=== PATIENT | male | born 1995 | race Caucasian/White ===

== ENCOUNTER 2016-11-12 09:09 | Emergency (ER) | payer SELFPAY ==
[~2016-11-12] VITALS: Ht 195.6 cm; Wt 100.0 kg
[~2016-11-12 09:09] MED LIST: MOTR200T PO; PROM25SU8 PO
[2016-11-12 09:11] VITALS: BP 135/83; PULSE 76; RESP 20; TEMP 98.5; O2SAT 100
--- NOTE | 2016-11-12 10:47 | PD ---
HPI Chief Complaint: Abdominal Pain Time Seen by Provider: 09:54 Travel History International Travel<30 days: No Contact w/Intl Traveler<30days: No Traveled to known affect area: No History of Present Illness HPI This patient complains of abdominal discomfort. He has spells that last 2-3 minutes and resolved spontaneously. This is been going on for going on 2 years now. He has seen GI physician in the past but no diagnosis made. He denies fever. No alleviating factors PFSH Past Medical History Medical History: Denies Significant Hx Diminished Hearing: No Gastrointestinal Disorders: Yes (CHRONIC ABD PAIN ) Immunizations Current: No Tetanus Vaccination: < 5 Years Influenza Vaccination: No Past Surgical History Appendectomy: Yes Tonsillectomy: Yes Other Surgery: Yes (R ANKLE SURGERY ) Social History Alcohol Use: Yes (OCC) Tobacco Use: No Substance Use: Yes (MARIJUANA) Allergies-Medications (Allergen,Severity, Reaction): Coded Allergies: No Known Allergies (Unverified , 11/12/16) Reported Meds & Prescriptions Reported Meds & Active Scripts Active No Active Prescriptions or Reported Medications Review of Systems HENT: No: Headaches Cardiovascular: No: Chest Pain or Discomfort Respiratory: No: Cough Gastrointestinal: Positive: Abdominal Pain Physical Exam Narrative GASTROINTESTINAL: Abdomen soft, non-tender, nondistended. Positive bowel sounds. No hepato-splenomegaly, or palpable masses. No guarding. SKIN: Focused skin assessment reveals no rash or ulcers. Skin is warm and dry. Palpation shows no induration or nodules. Psych: Normal mood and affect. Normal insight and judgment. Data Data Last Documented VS Vital Signs Date Time Temp Pulse Resp B/P Pulse Ox O2 Delivery O2 Flow Rate FiO2 11/12/16 09:11 98.5 76 20 135/83 100 MDM Medical Decision Making Medical Screen Exam Complete: Yes Emergency Medical Condition: Yes Medical Record Reviewed: Yes Differential Diagnosis Irritable bowel syndrome, colitis, gastroparesis Narrative Course I have reviewed the patient's electronic medical record. Patient has normal vital signs and a soft benign nontender abdomen. He is asymptomatic now. He does not require any emergent studies He will follow-up with outpatient GI physician Diagnosis Primary Impression: Abdominal pain Qualified Code: R10.10 - Pain of upper abdomen Additional Instructions: Call Dr. Canas's office for follow-up appointment Med/Other Pt SpecificInfo: Other Scripts No Active Prescriptions or Reported Meds Disposition: 01 DISCHARGE HOME Condition: Zana Boyd MD Nov 12, 2016 10:47
== END 2016-11-12 10:59 | disposition home or self-care (01) ==
LOC: NEPD 09:09
DX: R10.10 Upper abdominal pain, unspecified (principal)
CPT/HCPCS: 99282

== ENCOUNTER 2016-12-01 08:25 | Emergency (ER) | payer SELFPAY ==
[2016-12-01 08:26] VITALS: BP 128/74; PULSE 75; RESP 20; TEMP 98.3; O2SAT 98
[2016-12-01] MEDS ORDERED: NEXI20CA PO (09:11)
[2016-12-01] MEDS ORDERED: SODIUM CHLOR 0.9% 1000 ML INJ 1,000 ML IV ONE (09:45)
[2016-12-01] MEDS ORDERED: PROCHLORPERAZINE INJ 10 MG/2 ML VIAL IV PUSH ONE (09:45)
[2016-12-01] MEDS ORDERED: diphenhydrAMINE HCL 50 MG/ML VIAL ONE (09:53)
[2016-12-01] MEDS ORDERED: diphenhydrAMINE HCL 50 MG/ML VIAL IV PUSH ONE (10:00)
[2016-12-01 10:02] LABS: AUTOMATED NEUTROPHIL # 3.9 TH/MM3 (1.8-7.7); BASOPHIL % 0.5 % (0.0-2.0); EOSINOPHIL # 0.1 TH/MM3 (0-0.4); HEMATOCRIT 45.5 % (39.0-51.0); HEMO FLAGS DIFF FINAL; LYMPH % 23.8 % (9.0-44.0); LYMPHOCYTE # 1.5 TH/MM3 (1.0-4.8); MEAN CELL VOLUME 83.1 FL (80.0-100.0); MEAN CORPUSCULAR HEMOGLOBIN 27.4 PG (27.0-34.0); MONO % 13.7 % (0.0-8.0); PLATELET COUNT 188 TH/MM3 (150-450); RED BLOOD COUNT 5.47 MIL/MM3 (4.50-5.90); RED CELL DISTRIBUTION WIDTH 13.3 % (11.6-17.2); WHITE BLOOD COUNT 6.4 TH/MM3 (4.0-11.0)
[2016-12-01] MEDS ORDERED: ZOFR4TAB3 SL (10:05)
--- NOTE | 2016-12-01 10:05 | PD ---
HPI Chief Complaint: GI Complaint Time Seen by Provider: :17 Travel History International Travel<30 days: No Contact w/Intl Traveler<30days: No Traveled to known affect area: No History of Present Illness HPI This is a 21-year-old male who presents to the emergency department with chronic intermittent vomiting and diarrhea. He had a colonoscopy and endoscopy 2 weeks ago and is waiting for the results from Dr. Bonilla. He says the vomiting comes periodically. He says his been feeling fine for the past 2 days but then this morning at work he started to have vomiting. He says marijuana usually makes it better. He says he doesn't smoke marijuana every day but often smokes when he gets home from work or when he goes out drinking. He says he takes hot showers to try to make the symptoms better. He denies any abdominal pain. He denies any fevers or chills. Currently he feels back to normal because he smoked marijuana after his symptoms started this morning. PFSH Past Medical History Hx Anticoagulant Therapy: No Cardiovascular Problems: No Chemotherapy: No Cerebrovascular Accident: No Diabetes: No Diminished Hearing: No Gastrointestinal Disorders: Yes (CHRONIC ABD PAIN ) Respiratory: No Immunizations Current: No Past Surgical History Appendectomy: Yes Tonsillectomy: Yes Other Surgery: Yes (R ANKLE SURGERY ) Social History Alcohol Use: Yes (OCC) Tobacco Use: No Substance Use: Yes (MARIJUANA) Allergies-Medications (Allergen,Severity, Reaction): Coded Allergies: No Known Allergies (Unverified , 11/12/16) Reported Meds & Prescriptions Reported Meds & Active Scripts Active Reported Nexium (Esomeprazole DR) 20 Mg Capdr 20 Mg PO DAILY Review of Systems Except as stated in HPI: all other systems reviewed are Neg Physical Exam Narrative GENERAL:Well appearing, no acute distress SKIN: Focused skin assessment warm and dry. HEAD: Atraumatic. Normocephalic. EYES: Pupils equal and round. No injection or drainage. ENT: Moist mucous membranes NECK: Trachea midline. CARDIOVASCULAR: Regular rate and rhythm. No murmur appreciated. RESPIRATORY: Clear to auscultation. Breath sounds equal bilaterally. GASTROINTESTINAL: Abdomen soft, non-tender, nondistended. MUSCULOSKELETAL: No obvious deformities. NEUROLOGICAL: Awake and alert. No obvious cranial nerve deficits. Moving all extremities. PSYCHIATRIC: Appropriate mood and affect; insight and judgment normal. Data Data Last Documented VS Vital Signs Date Time Temp Pulse Resp B/P (MAP) Pulse Ox O2 Delivery O2 Flow Rate FiO2 12/01/16 08:26 98.3 75 20 128/74 (92) 98 Room Air Orders Orders Complete Blood Count With Diff (12/01/16 09:31) Comprehensive Metabolic Panel (12/01/16 09:31) Lipase (12/01/16 09:31) ^ Insert Iv (12/01/16 09:31) Prochlorperazine Inj (Compazine Inj) (12/01/16 09:45) Sodium Chlor 0.9% 1000 Ml Inj (Ns 1000 M (12/01/16 09:45) Diphenhydramine Inj (Benadryl Inj) (12/01/16 10:00) Diphenhydramine Inj (Benadryl Inj) (12/01/16 09:53) Labs Laboratory Tests Test 12/01/16 09:40 [facility] Medical Decision Making Medical Screen Exam Complete: Yes Emergency Medical Condition: Yes Medical Record Reviewed: Yes (patient was seen here earlier this month and referred to gastroenterology for similar symptoms) Interpretation(s) Afebrile, no tachycardia, normotensive Differential Diagnosis Cannabis hyperemesis syndrome, cyclic vomiting syndrome, gastritis, Crohn's disease, etc. bowel disease Narrative Course This is a 21-year-old male who presents to the emergency department with vomiting and intermittent loose stools. The way describes his vomiting is classic for cannabis hyperemesis syndrome. It does not like he had some inflammation of his endoscopy but he has yet to hear the results. I gave patient Compazine, Benadryl, IV fluids, and he is very eager to go and doesn't want to wait for his labs because his girlfriend keeps calling him about their child. I don't think he has any palpitation from the endoscopy or colonoscopy as he is benign abdomen and the procedure was 2 weeks ago. I think is safe for discharge. Diagnosis Primary Impression: Cannabinoid hyperemesis syndrome Patient Instructions: General Instructions Additional Instructions: If you develop severe or worsening abdominal pain, fever>100.4, persistent vomiting or inability to eat or drink return to the emergency department immediately. Follow up with your primary care physician in 1-2 days for a check-up. Med/Other Pt SpecificInfo: Prescription(s) given Scripts Ondansetron Odt (Zofran Odt) 4 Mg Tab 4 MG SL Q6HR Y for Nausea/Vomiting, #30 TAB 0 Refills Prov: Kari Beltran MD 12/01/16 Disposition: 01 DISCHARGE HOME Condition: Stable Kari Beltran MD Dec 01, 2016 10:05
[2016-12-01 10:10] LABS: ANION GAP 6 MEQ/L (5-15); AST (GOT) 16 U/L (15-37); BICARBONATE 30.2 MEQ/L (21.0-32.0); BLOOD UREA NITROGEN 13 MG/DL (7-18); CHLORIDE 103 MEQ/L (98-107); GLOMERULAR FILTRATION RATE 91 ML/MIN (>89); POTASSIUM 3.8 MEQ/L (3.5-5.1); SODIUM (NA) 139 MEQ/L (136-145)
[2016-12-01 10:11] LABS: ALT (GPT) 21 U/L (12-78)
[2016-12-01 10:13] LABS: ALKALINE PHOSPHATASE 89 U/L (45-117); TOTAL BILIRUBIN ADULT 0.3 MG/DL (0.2-1.0)
== END 2016-12-01 10:09 | disposition home or self-care (01) ==
LOC: NEPD 08:25
DX: F12.988 Cannabis use, unspecified with other cannabis-induced disorder (principal); R19.7 Diarrhea, unspecified; Z87.19 Personal history of other diseases of the digestive system
CPT/HCPCS: 80053; 83690; 85025; 96374; 99284; J0780; J1200; J7030

== ENCOUNTER 2017-01-22 23:51 | Emergency (ER) | payer OTHER ==
[~2017-01-22] VITALS: Ht 175.3 cm; Wt 80.0 kg
[~2017-01-22 23:51] MED LIST changes: -MOTR200T PO; +NEXI20CA PO; -PROM25SU8 PO; +ZOFR4TAB3 SL
[2017-01-23] VITALS: BP 137/74; PULSE 57; RESP 20; TEMP 98.2; O2SAT 100
--- NOTE | 2017-01-23 00:31 | PD ---
HPI Chief Complaint: Psychiatric Symptoms Time Seen by Provider: 00:14 Travel History International Travel<30 days: No Contact w/Intl Traveler<30days: No Traveled to known affect area: No History of Present Illness HPI Patient is a 21-year-old male presenting to the emergency Department under Villarreal act for psychiatric evaluation. Patient made a statement to his fiance that he would kill himself after they had been arguing. Patient currently denies any suicidal or homicidal ideations, he further denies any hallucinations. Patient denies any previous psychiatric history. He states that he just got mad, made that statement and left. That is when she called the police. Denies any physical complaints at this time. PFSH Past Medical History Hx Anticoagulant Therapy: No ADHD: Yes Cardiovascular Problems: No Chemotherapy: No Cerebrovascular Accident: No Diabetes: No Diminished Hearing: No Gastrointestinal Disorders: Yes (CHRONIC ABD PAIN ) Respiratory: No Immunizations Current: No Past Surgical History Appendectomy: Yes Tonsillectomy: Yes Other Surgery: Yes (R ANKLE SURGERY ) Social History Alcohol Use: Yes (OCC) Tobacco Use: No Substance Use: Yes (MARIJUANA) Allergies-Medications (Allergen,Severity, Reaction): Coded Allergies: No Known Allergies (Unverified , 11/12/16) Reported Meds & Prescriptions Reported Meds & Active Scripts Active Zofran Odt (Ondansetron Odt) 4 Mg Tab 4 Mg SL Q6HR PRN Reported Nexium (Esomeprazole DR) 20 Mg Capdr 20 Mg PO DAILY Review of Systems Except as stated in HPI: all other systems reviewed are Neg Psychiatric: Positive: Suicidal Ideations Physical Exam Narrative GENERAL: Well-developed, well-nourished, alert male. Resting in no acute distress. SKIN: Warm and dry. HEAD: Atraumatic. Normocephalic. EYES: Pupils equal and round. No scleral icterus. No injection or drainage. ENT: No nasal bleeding or discharge. Mucous membranes pink and moist. NECK: Trachea midline. No JVD. CARDIOVASCULAR: Regular rate and rhythm. RESPIRATORY: No accessory muscle use. Clear to auscultation. Breath sounds equal bilaterally. GASTROINTESTINAL: Abdomen soft, non-tender, nondistended. Hepatic and splenic margins not palpable. MUSCULOSKELETAL: Extremities without clubbing, cyanosis, or edema. No obvious deformities. NEUROLOGICAL: Awake and alert. No obvious cranial nerve deficits. Motor grossly within normal limits. Five out of 5 muscle strength in the arms and legs. Normal speech. PSYCHIATRIC: Appropriate mood and affect; insight and judgment normal. Data Data Last Documented VS Vital Signs Date Time Temp Pulse Resp B/P (MAP) Pulse Ox O2 Delivery O2 Flow Rate FiO2 01/23/17 00:00 98.2 57 20 137/74 (95) 100 Orders Orders Complete Blood Count With Diff (01/23/17 00:14) Comprehensive Metabolic Panel (01/23/17 00:14) Urinalysis - C+S If Indicated (01/23/17 00:14) Psych Screen (01/23/17 00:14) Drug Screen, Random Urine (01/23/17:14) Alcohol (Ethanol) (01/23/17 00:14) Salicylates (Aspirin) (01/23/17 00:14) Tylenol (Acetaminophen) (01/23/17 00:14) Labs Laboratory Tests Test 01/23/17 00:20 01/23/17 01:50 White Blood Count 11.9 TH/MM3 Red Blood Count 5.30 MIL/MM3 Hemoglobin 14.7 GM/DL Hematocrit 43.7 % Mean Corpuscular Volume 82.5 FL Mean Corpuscular Hemoglobin 27.7 PG Mean Corpuscular Hemoglobin Concent 33.6 % Red Cell Distribution Width 13.3 % Platelet Count 193 TH/MM3 Mean Platelet Volume 8.2 FL Neutrophils (%) (Auto) 66.2 % Lymphocytes (%) (Auto) 24.5 % Monocytes (%) (Auto) 8.2 % Eosinophils (%) (Auto) 0.8 % Basophils (%) (Auto) 0.3 % Neutrophils # (Auto) 7.9 TH/MM3 Lymphocytes # (Auto) 2.9 TH/MM3 Monocytes # (Auto) 1.0 TH/MM3 Eosinophils # (Auto) 0.1 TH/MM3 Basophils # (Auto) 0.0 TH/MM3 CBC Comment DIFF FINAL Differential Comment Blood Urea Nitrogen 14 MG/DL Creatinine 0.88 MG/DL Random Glucose 98 MG/DL Total Protein 7.9 GM/DL Albumin 4.5 GM/DL Calcium Level 9.2 MG/DL Alkaline Phosphatase 92 U/L Aspartate Amino Transf (AST/SGOT) 12 U/L Alanine Aminotransferase (ALT/SGPT) 20 U/L Total Bilirubin 0.4 MG/DL Sodium Level 140 MEQ/L Potassium Level 3.6 MEQ/L Chloride Level 106 MEQ/L Carbon Dioxide Level 25.9 MEQ/L Anion Gap 8 MEQ/L Estimat Glomerular Filtration Rate 107 ML/MIN Salicylates Level 2.7 MG/DL Acetaminophen Level LESS THAN 2.0 MCG/ML Ethyl Alcohol Level LESS THAN 3 MG/DL Urine Color YELLOW Urine Turbidity CLEAR Urine pH 6.5 Urine Specific [place] 1.024 Urine Protein NEG mg/dL Urine Glucose (UA) NEG mg/dL Urine Ketones NEG mg/dL Urine Occult Blood NEG Urine Nitrite NEG Urine Bilirubin NEG Urine Urobilinogen LESS THAN 2.0 MG/DL Urine Leukocyte Esterase NEG Urine RBC LESS THAN 1 /hpf Urine WBC 1 /hpf Urine Amorphous Sediment RARE Urine Mucus FEW /lpf Microscopic Urinalysis Comment CULT NOT INDICATED Urine Opiates Screen NEG Urine Barbiturates Screen NEG Urine Amphetamines Screen NEG Urine Benzodiazepines Screen NEG Urine Cocaine Screen NEG Urine Cannabinoids Screen POS MDM Medical Decision Making Medical Screen Exam Complete: Yes Emergency Medical Condition: Yes Interpretation(s) Vital Signs Date Time Temp Pulse Resp B/P (MAP) Pulse Ox O2 Delivery O2 Flow Rate FiO2 01/23/17 00:00 98.2 57 20 137/74 (95) 100 Differential Diagnosis Substance abuse versus mood disorder versus suicidal ideations versus depression versus other Narrative Course Patient is a 21-year-old male that presented to the emergency Department under Villarreal act for psychiatric evaluation after making suicidal ideations to his fiance. Patient denies suicidal ideations, he denies any psychiatric history. Mental health screening discussed with the patient. Psychiatric screen ordered. Labs reviewed, no acute abnormalities identified. Urine drug screen is positive for marijuana. At this time patient is medically cleared for psychiatric evaluation. Patient has a sitter at bedside. Diagnosis Primary Impression: Medical clearance for psychiatric admission Condition: Stable Maury,Laura ANDRES Jan 23, 2017 00:31
[2017-01-23 00:52] LABS: AUTOMATED NEUTROPHIL # 7.9 TH/MM3 (1.8-7.7); BASOPHIL % 0.3 % (0.0-2.0); EOSINOPHIL # 0.1 TH/MM3 (0-0.4); EOSINOPHIL % 0.8 % (0.0-4.0); HEMATOCRIT 43.7 % (39.0-51.0); HEMO FLAGS DIFF FINAL; LYMPH % 24.5 % (9.0-44.0); LYMPHOCYTE # 2.9 TH/MM3 (1.0-4.8); MEAN CELL VOLUME 82.5 FL (80.0-100.0); MEAN CORPUSCULAR HEMOGLOBIN 27.7 PG (27.0-34.0); MEAN CORPUSCULAR HGB CONC 33.6 % (32.0-36.0); MONO % 8.2 % (0.0-8.0); NEUT % 66.2 % (16.0-70.0); PLATELET COUNT 193 TH/MM3 (150-450); RED CELL DISTRIBUTION WIDTH 13.3 % (11.6-17.2); WHITE BLOOD COUNT 11.9 TH/MM3 (4.0-11.0)
[2017-01-23 01:04] LABS: ALT (GPT) 20 U/L (12-78); ANION GAP 8 MEQ/L (5-15); AST (GOT) 12 U/L (15-37); BICARBONATE 25.9 MEQ/L (21.0-32.0); BLOOD UREA NITROGEN 14 MG/DL (7-18); CHLORIDE 106 MEQ/L (98-107); GLOMERULAR FILTRATION RATE 107 ML/MIN (>89); POTASSIUM 3.6 MEQ/L (3.5-5.1); SODIUM (NA) 140 MEQ/L (136-145)
[2017-01-23 01:07] LABS: ACETAMINOPHEN LESS THAN 2.0 MCG/ML (10.0-30.0); ALCOHOL LESS THAN 3 MG/DL (0-5); ALKALINE PHOSPHATASE 92 U/L (45-117); TOTAL BILIRUBIN ADULT 0.4 MG/DL (0.2-1.0)
[2017-01-23 02:00] VITALS: BP 122/69; PULSE 58; RESP 15; O2SAT 99
[2017-01-23 02:08] LABS: BLOOD, URINE NEG (NEG); COMMENT (UR) CULT NOT INDICATED; CULTURE IF INDICATED CULT NOT INDICATED; GLUCOSE,URINE NEG (NEG); KETONE, URINE NEG (NEG); MUCUS URINE FEW /lpf (OCC); NITRITE,URINE NEG (NEG); PH, URINE 6.5 (5.0-8.5); URINE COLOR YELLOW (YELLW/STRAW)
[2017-01-23 04:07] VITALS: BP 139/85
[2017-01-23 06:33] VITALS: BP 113/57; PULSE 50; RESP 18; O2SAT 97
--- NOTE | 2017-01-23 10:24 | PD ---
Physical Exam Time Seen by Provider: 10:22 MCKENNA Oreilly, has evaluated the patient, lifted the Villarreal act, and cleared the patient for discharge. Data Data Last Documented VS Vital Signs Date Time Temp Pulse Resp B/P (MAP) Pulse Ox O2 Delivery O2 Flow Rate FiO2 01/23/17 06:33 50 18 113/57 (75) 97 Room Air 01/23/17 00:00 98.2 Orders Orders Complete Blood Count With Diff (01/23/17 00:14) Comprehensive Metabolic Panel (01/23/17 00:14) Urinalysis - C+S If Indicated (01/23/17 00:14) Psych Screen (01/23/17 00:14) Drug Screen, Random Urine (01/23/17 00:14) Alcohol (Ethanol) (01/23/17 00:14) Salicylates (Aspirin) (01/23/17 00:14) Tylenol (Acetaminophen) (01/23/17 00:14) Diet Regular Basic (01/23/17 Breakfast) Labs Laboratory Tests Test 01/23/17 00:20 01/23/17 01:50 White Blood Count 11.9 TH/MM3 Red Blood Count 5.30 MIL/MM3 Hemoglobin 14.7 GM/DL Hematocrit 43.7 % Mean Corpuscular Volume 82.5 FL Mean Corpuscular Hemoglobin 27.7 PG Mean Corpuscular Hemoglobin Concent 33.6 % Red Cell Distribution Width 13.3 % Platelet Count 193 TH/MM3 Mean Platelet Volume 8.2 FL Neutrophils (%) (Auto) 66.2 % Lymphocytes (%) (Auto) 24.5 % Monocytes (%) (Auto) 8.2 % Eosinophils (%) (Auto) 0.8 % Basophils (%) (Auto) 0.3 % Neutrophils # (Auto) 7.9 TH/MM3 Lymphocytes # (Auto) 2.9 TH/MM3 Monocytes # (Auto) 1.0 TH/MM3 Eosinophils # (Auto) 0.1 TH/MM3 Basophils # (Auto) 0.0 TH/MM3 CBC Comment DIFF FINAL Differential Comment Blood Urea Nitrogen 14 MG/DL Creatinine 0.88 MG/DL Random Glucose 98 MG/DL Total Protein 7.9 GM/DL Albumin 4.5 GM/DL Calcium Level 9.2 MG/DL Alkaline Phosphatase 92 U/L Aspartate Amino Transf (AST/SGOT) 12 U/L Alanine Aminotransferase (ALT/SGPT) 20 U/L Total Bilirubin 0.4 MG/DL Sodium Level 140 MEQ/L Potassium Level 3.6 MEQ/L Chloride Level 106 MEQ/L Carbon Dioxide Level 25.9 MEQ/L Anion Gap 8 MEQ/L Estimat Glomerular Filtration Rate 107 ML/MIN Salicylates Level 2.7 MG/DL Acetaminophen Level LESS THAN 2.0 MCG/ML Ethyl Alcohol Level LESS THAN 3 MG/DL Urine Color YELLOW Urine Turbidity CLEAR Urine pH 6.5 Urine Specific [place] 1.024 Urine Protein NEG mg/dL Urine Glucose (UA) NEG mg/dL Urine Ketones NEG mg/dL Urine Occult Blood NEG Urine Nitrite NEG Urine Bilirubin NEG Urine Urobilinogen LESS THAN 2.0 MG/DL Urine Leukocyte Esterase NEG Urine RBC LESS THAN 1 /hpf Urine WBC 1 /hpf Urine Amorphous Sediment RARE Urine Mucus FEW /lpf Microscopic Urinalysis Comment CULT NOT INDICATED Urine Opiates Screen NEG Urine Barbiturates Screen NEG Urine Amphetamines Screen NEG Urine Benzodiazepines Screen NEG Urine Cocaine Screen NEG Urine Cannabinoids Screen POS MDM Supervised Visit with HUGH: No Narrative Course MCKENNA Finn, has evaluated the patient, lifted the Villarreal act, and cleared the patient for discharge.. Patient contracts safety. Denies suicidal or homicidal ideations. Patient will be provided community resource packet to YULISSA POOLE for follow-up. Has friends and family for support. Patient is medically cleared for discharge. Diagnosis Primary Impression: Medical clearance for psychiatric admission Additional Impression: Adjustment disorder Qualified Codes: F43.20 - Adjustment disorder, unspecified Referrals: ZULEMA (Out patient) [facility] Primary Care Physician Psychiatrist Adam POOLE Behavioral Patient Instructions: General Instructions, Mood Disorders (ED) Additional Instruction: Contract safety to your self and others Follow-up with psychiatry Follow-up with primary care provider Follow-up with Florencio Mejia Return to the emergency department immediately with worsening of symptoms Med/Other Pt SpecificInfo: No Change to Meds, No Meds Exist/No RX given Scripts No Active Prescriptions or Reported Meds Disposition: 01 DISCHARGE HOME Condition: Stable Joycelyn Gardner Jan 23, 2017 10:23
--- NOTE | 2017-01-23 10:27 | PD ---
History of Present Illness Chief Complaint: Psychiatric Symptoms Time Seen by Provider: 10:15 Travel History International Travel<30 Days: No Contact w/Intl Traveler<30days: No Known affected area: No Legal Status Legal Status: Villarreal Act Villarreal Act Signed By: Carmen Valencia History of Present Illness: History of Present Illness Patient is a 21-year-old male with no previous 0psychiatric history who in context of an argument with his fiсветланаe made suicidal statements. He then went for a walk and his fiсветланаe called the police who placed him under a villarreal act. The patient made no attempt to harm himself. he has no history of previous suicide attempts. He was monitored here in secure environment and he presented no behavioral concerns and no suicidality. EMR reviewed. No previous contact with [facility]. His toxicology is positive for cannabinoids. Patient is seen with VIK Whipple. He is alert, oriented, calm. He is not psychotic and no evidence of any francis. He presents no evidence of any psychiatric symptoms. States that " I made a stupid comment once and I lost my head" ' I don't want to hurt myself or anyone else. I have a kid as well as family and its' just stupid". His fiancee has been in contact with the patient here as per staff report and is advocating for his release. PFSH Past Medical History Hx Anticoagulant Therapy: No ADHD: Yes Cardiovascular Problems: No Chemotherapy: No Cerebrovascular Accident: No Diabetes: No Diminished Hearing: No Gastrointestinal Disorders: Yes (CHRONIC ABD PAIN ) Respiratory: No Immunizations Current: No Past Surgical History Appendectomy: Yes Tonsillectomy: Yes Other Surgery: Yes (R ANKLE SURGERY ) Psychiatric History Psychiatric History Hx Psychiatric Treatment: PATIENT DENIES any No previous sucide attempt. History of Inpatient Treatment: No Guns or firearms in home: No Social History Single male. Lives with his brianna and his 5 month old son. Is currently attending school for air conditioning repair. Hx Alcohol Use: Yes (OCC) Hx Tobacco Use: No Hx Substance Use: No Hx of Substance Use Treatment: No Allergies-Medications (Allergen,Severity, Reaction): Coded Allergies: No Known Allergies (Unverified , 11/12/16) Reported Meds & Prescriptions Reported Meds & Active Scripts Active No Active Prescriptions or Reported Medications Review of Systems Except as stated in HPI: all other systems reviewed are Neg Mental Status Examination Appearance: Appropriate Consciousness: Alert Orientation: x4 Motor Activity: Normal gait Speech: Unremarkable Language: Adequate Fund of Knowledge: Adequate Attention and Concentration: Adequate Memory: Unremarkable Mood: Appropriate Affect: Appropriate Thought Process & Associations: Intact Thought Content: Appropriate Hallucination Type: None Delusion Type: None Suicidal Ideation: No Suicidal Plan: No Suicidal Intention: No Homicidal Ideation: No Homicidal Plan: No Homicidal Intention: No Insight: Adequate Judgment: Impulsive MDM Medical Decision Making Medical Record Reviewed: Yes Assessment/Plan Patient is a 21-year-old male with no previous 0psychiatric history who in context of an argument with his fiancee made suicidal statements. He then went for a walk and his fiancee called the police who placed him under a villarreal act. The patient made no attempt to harm himself. He has no history of previous suicide attempts. He was monitored here in secure environment and he presented no behavioral concerns and no suicidality. The patient is future oriented with adequate protective factors. He does not meet Villarreal act criteria and there is no evidence of unstable mental illness as defined under the Villarreal act. The Villarreal act will be lifted. Clear from psychiatry for discharge. Orders Orders Complete Blood Count With Diff (01/23/17 00:14) Comprehensive Metabolic Panel (01/23/17 00:14) Urinalysis - C+S If Indicated (01/23/17 00:14) Psych Screen (01/23/17 00:14) Drug Screen, Random Urine (01/23/17 00:14) Alcohol (Ethanol) (01/23/17 00:14) Salicylates (Aspirin) (01/23/17 00:14) Tylenol (Acetaminophen) (01/23/17 00:14) Diet Regular Basic (01/23/17 Breakfast) Results Vital Signs Date Time Temp Pulse Resp B/P (MAP) Pulse Ox O2 Delivery O2 Flow Rate FiO2 01/23/17 06:33 50 18 113/57 (75) 97 Room Air 01/23/17 04:07 78 15 139/85 (103) 100 01/23/17 02:00 58 15 122/69 (86) 99 Room Air 01/23/17 00:00 98.2 57 20 137/74 (95) 100 Laboratory Tests Test 01/23/17 00:20 01/23/17 01:50 White Blood Count 11.9 Red Blood Count 5.30 Hemoglobin 14.7 Hematocrit 43.7 Mean Corpuscular Volume 82.5 Mean Corpuscular Hemoglobin 27.7 Mean Corpuscular Hemoglobin Concent 33.6 Red Cell Distribution Width 13.3 Platelet Count 193 Mean Platelet Volume 8.2 Neutrophils (%) (Auto) 66.2 Lymphocytes (%) (Auto) 24.5 Monocytes (%) (Auto) 8.2 Eosinophils (%) (Auto) 0.8 Basophils (%) (Auto) 0.3 Neutrophils # (Auto) 7.9 Lymphocytes # (Auto) 2.9 Monocytes # (Auto) 1.0 Eosinophils # (Auto) 0.1 Basophils # (Auto) 0.0 CBC Comment DIFF FINAL Differential Comment Blood Urea Nitrogen 14 Creatinine 0.88 Random Glucose 98 Total Protein 7.9 Albumin 4.5 Calcium Level 9.2 Alkaline Phosphatase 92 Aspartate Amino Transf (AST/SGOT) 12 Alanine Aminotransferase (ALT/SGPT) 20 Total Bilirubin 0.4 Sodium Level 140 Potassium Level 3.6 Chloride Level 106 Carbon Dioxide Level 25.9 Anion Gap 8 Estimat Glomerular Filtration Rate 107 Salicylates Level 2.7 Acetaminophen Level LESS THAN 2.0 Ethyl Alcohol Level LESS THAN 3 Urine Color YELLOW Urine Turbidity CLEAR Urine pH 6.5 Urine Specific [place] 1.024 Urine Protein NEG Urine Glucose (UA) NEG Urine Ketones NEG Urine Occult Blood NEG Urine Nitrite NEG Urine Bilirubin NEG Urine Urobilinogen LESS THAN 2.0 Urine Leukocyte Esterase NEG Urine RBC LESS THAN 1 Urine WBC 1 Urine Amorphous Sediment RARE Urine Mucus FEW Microscopic Urinalysis Comment CULT NOT INDICATED Urine Opiates Screen NEG Urine Barbiturates Screen NEG Urine Amphetamines Screen NEG Urine Benzodiazepines Screen NEG Urine Cocaine Screen NEG Urine Cannabinoids Screen POS Diagnosis Primary Impression: Adjustment disorder Psychiatrically Cleared: Yes Referrals: ZULEMA (Out patient) [facility] Primary Care Physician Psychiatrist Adam POOLE Behavioral Patient Instructions: General Instructions, Mood Disorders (ED) Additional Instructions: Contract safety to your self and others Follow-up with psychiatry Follow-up with primary care provider Follow-up with Florencio Talley/ZULEMA Return to the emergency department immediately with worsening of symptoms Med/ Other Pt Specific Info: No Meds Exist/No RX given Prescriptions No Active Prescriptions or Reported Meds Disposition: 01 DISCHARGE HOME Condition: Stable Problem Qualifiers Primary Impression: Adjustment disorder Qualified Codes: F43.25 - Adjustment disorder with mixed disturbance of emotions and conduct Huma Delaney Jan 23, 2017 10:27
[2017-01-23 10:45] VITALS: BP 113/57; TEMP 98.2
== END 2017-01-23 10:47 | disposition home or self-care (01) ==
LOC: NEPD 23:51 → NEPJ 01-23 10:47
DX: F43.25 Adjustment disorder with mixed disturbance of emotions and conduct (principal)
CPT/HCPCS: 80053; 80307; 81001; 85025; 99283

== ENCOUNTER 2017-08-09 10:28 | Emergency (ER) | payer MEDICAID, OTHER ==
[~2017-08-09] VITALS: Ht 195.6 cm; Wt 100.0 kg
[2017-08-09 10:44] VITALS: BP 143/67; PULSE 76; RESP 17; TEMP 98.1; O2SAT 97
--- NOTE | 2017-08-09 10:56 | PD ---
HPI Chief Complaint: Laceration/Skin Injury Time Seen by Provider: 10:52 Travel History International Travel<30 days: No Contact w/Intl Traveler<30days: No Traveled to known affect area: No History of Present Illness HPI 22-year-old male arrives with left foot pain. He was hopping in his house evidently over provider landed on the left foot on top of the problems of a power cord which penetrated the surface of the foot evidently been inside the superficial tissue. Profuse bleeding was observed initially however it has since resolved. Last tetanus was about 2 years ago. Moderate pain has improved however is worse with palpation. Pt was barefoot at the time. PFSH Past Medical History Hx Anticoagulant Therapy: No ADHD: Yes Cardiovascular Problems: No Chemotherapy: No Cerebrovascular Accident: No Diabetes: No Diminished Hearing: No Gastrointestinal Disorders: Yes (CHRONIC ABD PAIN ) Respiratory: No Immunizations Current: No Tetanus Vaccination: > 5 Years Influenza Vaccination: No Past Surgical History Appendectomy: Yes Tonsillectomy: Yes Other Surgery: Yes (R ANKLE SURGERY ) Social History Alcohol Use: Yes (OCC) Tobacco Use: No (quit) Substance Use: Yes (HX:marijuana ) Allergies-Medications (Allergen,Severity, Reaction): Coded Allergies: No Known Allergies (Unverified , 11/12/16) Reported Meds & Prescriptions Reported Meds & Active Scripts Active No Active Prescriptions or Reported Medications Review of Systems Except as stated in HPI: all other systems reviewed are Neg General / Constitutional: No: Fever Eyes: No: Photophobia HENT: No: Sore Throat Cardiovascular: No: Palpitations Physical Exam Narrative GENERAL: Well-nourished well-developed 22-year-old male no acute distress Vital Signs Date Time Temp Pulse Resp B/P (MAP) Pulse Ox O2 Delivery O2 Flow Rate FiO2 08/09/17 10:44 98.1 76 17 143/67 (92) 97 SKIN: Warm and dry. HEAD: Atraumatic. Normocephalic. EYES: Pupils equal and round. No scleral icterus. No injection or drainage. GASTROINTESTINAL: Abdomen soft, non-tender, nondistended. Hepatic and splenic margins not palpable. MUSCULOSKELETAL: Extremities without clubbing, cyanosis, or edema. No obvious deformities. Along the plantar aspect of the foot there is a 1 cm somewhat linear puncture wound with about 1 cm of round blister/avulsion type process. NEUROLOGICAL: Awake and alert. No obvious cranial nerve deficits. Motor grossly within normal limits. Five out of 5 muscle strength in the arms and legs. Normal speech. Pt is ambulatory Data Data Last Documented VS Vital Signs Date Time Temp Pulse Resp B/P (MAP) Pulse Ox O2 Delivery O2 Flow Rate FiO2 08/09/17 10:44 98.1 76 17 143/67 (92) 97 Orders Orders Foot, Limited (2vws) (08/09/17 ) Ed Discharge Order (08/09/17 11:24) MDM Medical Decision Making Medical Screen Exam Complete: Yes Emergency Medical Condition: Yes Medical Record Reviewed: Yes Differential Diagnosis Foreign body, laceration, avulsion Narrative Course There is no retained foreign body. The wound will heal on its own. Home cleaning instructions discussed at bedside. Diagnosis Primary Impression: Puncture wound Additional Instructions: Keep your foot clean with clean socks and shoes for 2 weeks. Clean your with soap and hot water twice daily and dress it with a clean bandage. Med/Other Pt SpecificInfo: No Change to Meds Scripts No Active Prescriptions or Reported Meds Disposition: 01 DISCHARGE HOME Condition: Stable Oscar Laird MD August 09, 2017 10:56
--- NOTE | 2017-08-09 11:28 | RADRPT ---
EXAM DATE/TIME: 08/09/2017 11:10 [facility] COMPARISON: No previous studies available for comparison. INDICATIONS : Foreign body. Patient states stepped on electrical plug, plug was bent after removal from foot. MEDICAL HISTORY : None. SURGICAL HISTORY : None. ENCOUNTER: Initial ACUITY: 1 day PAIN SCORE: 6/10 LOCATION: Left foot FINDINGS: Soft tissue swelling, with minimal calcifications seen only on the lateral view at the tarsometatarsa l joint. I don't see metallic foreign body. CONCLUSION: Soft tissue swelling, negative for metallic foreign body. Edilberto Calderon MD FACR on August 09, 2017 at 11:24 Board Certified Radiologist. This report was verified electronically.
== END 2017-08-09 11:31 | disposition home or self-care (01) ==
LOC: NEPD 10:28
DX: S91.332A Puncture wound without foreign body, left foot, initial encounter (principal); F90.9 Attention-deficit hyperactivity disorder, unspecified type; W22.8XXA Striking against or struck by other objects, initial encounter; Y92.009 Unspecified place in unspecified non-institutional (private) residence as the place of occurrence of the external cause; Z87.891 Personal history of nicotine dependence
CPT/HCPCS: 73620; 99283